=== PATIENT | female | born 1995 | race Caucasian/White ===

== ENCOUNTER 2020-01-18 00:33 | Emergency (ER) | payer OTHER ==
[2020-01-18] MEDS ORDERED: LEVALBUTEROL 1.25 MG/3 ML NEB ONE (01:11)
[2020-01-18] MEDS ORDERED: AZITHROMYCIN 250 MG TAB ONE (02:28)
--- NOTE | 2020-01-18 02:30 | ER ---
Nurse's Notes [facility] Name: Ashish Solano Age: 24 yrs Sex: Female : 1995 Arrival Date: 01/18/2020 Time: 00:36 Bed 20 Private MD: Diagnosis: Acute pharyngitis;Acute upper respiratory infection, unspecified Presentation: 01/17 00:47 Chief complaint: Patient states: i have cough and sore throat 2 weeks ago and i was mg2 tested for flu and strep and it was negative. today i have cough, chest pain and fever 100 F. Coronavirus screen: The patient has NOT traveled to a country currently being monitored by the [facility] within the last 14 days. Proceed with normal triage procedures. The patient has NOT had contact with any known and/or suspected case of coronavirus. Ebola Screen: No symptoms or risks identified at this time. Initial Sepsis Screen: Does the patient meet any 2 criteria? No. Patient's initial sepsis screen is negative. Does the patient have a suspected source of infection? No. Patient's initial sepsis screen is negative. Risk Assessment: Do you want to hurt yourself or someone else? Patient reports no desire to harm self or others. 00:47 Method Of Arrival: Ambulatory mg2 00:47 Acuity: JUDY 4 mg2 Triage Assessment: 02:00 General: Appears in no apparent distress. comfortable, Behavior is calm, cooperative. mg2 Respiratory: Onset: The symptoms/episode began/occurred today, the patient has mild shortness of breath. 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 - Social history:: Smoking status: Patient denies any tobacco usage or history of. Patient uses alcohol, occasionally. Patient/guardian denies using street drugs, IV drugs. Screenin:53 Abuse screen: Denies threats or abuse. Denies injuries from another. Nutritional mg2 screening: No deficits noted. Tuberculosis screening: No symptoms or risk factors identified. Fall Risk None identified. Assessment: 00:54 General: Appears in no apparent distress. comfortable, Behavior is calm, cooperative. mg2 Pain: Complains of pain in chest. Neuro: Level of Consciousness is awake, alert, obeys commands, Oriented to person, place, time, situation. Cardiovascular: Rhythm is regular. Respiratory: Reports shortness of breath cough that is Airway is patent Respiratory effort is even, unlabored, Respiratory pattern is regular, symmetrical, Breath sounds are clear. GI: No signs and/or symptoms were reported involving the gastrointestinal system. : No signs and/or symptoms were reported regarding the genitourinary system. EENT: Reports sore throat. Derm: Skin is intact, is healthy with good turgor, Skin is pink, warm \T\ dry. normal. Musculoskeletal: Circulation, motion, and sensation intact. Capillary refill < 3 seconds. Vital Signs: 00:47 BP 140 / 92; Pulse 93; Resp 18; Temp 98.5; Pulse Ox 98% on R/A; Weight 63.5 kg; Height mg2 5 ft. 7 in. (170.18 cm); 02:40 BP 135 / 78; Pulse 90; Resp 18; Temp 98(TE); Pulse Ox 100% on R/A; mg2 00:47 Body Mass Index 21.93 (63.50 kg, 170.18 cm) mg2 ED Course: 00:36 Patient arrived in ED. cl3 00:41 Jean Leon PA is PHCP. jmm 00:41 Randall Vyas MD is Attending Physician. jmm 00:46 Sorin Mccall, DANIELITO is Primary Nurse. mg2 00:50 Triage completed. mg2 00:51 Arm band placed on. mg2 01:04 No provider procedures requiring assistance completed. Flu and/or RSV swab sent to lab. mg2 Strep swab sent to lab. Patient did not have IV access during this emergency room visit. 01:05 Patient has correct armband on for positive identification. mg2 01:32 Chest Single View XRAY In Process Unspecified. EDMS Administered Medications: 01:09 Drug: Xopenex (3) 1.25 mg Route: Inhalation; mg2 02:09 Follow up: Response: No adverse reaction mg2 02:26 Drug: AZITHromycin 500 mg Route: PO; mg2 02:26 Follow up: Response: No adverse reaction mg2 Outcome: 02:29 Discharge ordered by . jmm 02:40 Discharged to home ambulatory, with family. mg2 02:40 Condition: stable 02:40 Discharge instructions given to patient, family, Instructed on discharge instructions, follow up and referral plans. medication usage, Demonstrated understanding of instructions, follow-up care, medications, Prescriptions given X 2. 02:42 Patient left the ED. mg2 Signatures: Dispatcher [employer] EDMS Jean Leon PA PA jmm Gardose, Michele, RN RN mg2 Enrrique Pennington cl3
--- NOTE | 2020-01-18 02:30 | EDPHYS ---
Physician Documentation [facility] Name: Ashish Solano Age: 24 yrs Sex: Female : 1995 Arrival Date: 01/18/2020 Time: 00:36 Bed 20 Private MD: ED Physician Randall Vyas HPI: 01/17 00:46 This 24 yrs old Female presents to ER via Ambulatory with complaints of jmm Shortness Of Breath, Chest Pain. 00:46 The patient has shortness of breath at rest. Onset: The symptoms/episode began/occurred jmm gradually, today. Duration: The symptoms are continuous. Associated signs and symptoms: Pertinent positives: non-productive cough, fever. This is a 24 year old female with a history of ulcerative colitis that presents to the ED with complaints of cough, congestion, sore throat beginning today. Patient had a similar episode 2 weeks ago with worsening symptoms beginning this evening. Patient no has chest pain with deep inspiration and cough at the sternum which radiates laterally. . 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 - Social history:: Smoking status: Patient denies any tobacco usage or history of. Patient uses alcohol, occasionally. Patient/guardian denies using street drugs, IV drugs. ROS: 00:46 Abdomen/GI: Negative for abdominal pain, nausea, vomiting, diarrhea, and constipation, jmm Back: Negative for injury and pain, Neuro: Negative for headache, weakness, numbness, tingling, and seizure. 00:46 Constitutional: Positive for malaise. 00:46 Cardiovascular: Positive for chest pain, with cough. 00:46 Respiratory: Positive for cough. 00:46 All other systems are negative. Exam: 00:46 Constitutional: This is a well developed, well nourished patient who is awake, alert, jmm and in no acute distress. Head/Face: atraumatic. Eyes: EOMI, no conjunctival erythema appreciated 00:46 Neck: Trachea midline, Supple Chest/axilla: Normal chest wall appearance and motion. 00:46 Abdomen/GI: Non distended, soft Back: Normal ROM Skin: General appearance color normal MS/ Extremity: Moves all extremities, no obvious deformities appreciated, no edema noted to the lower extremities Neuro: Awake and alert, normal gait Psych: Behavior is normal, Mood is normal, Patient is cooperative and pleasant 00:46 ENT: TM's: erythema, that is moderate, on the left, Posterior pharynx: erythema, that is moderate. 00:46 Cardiovascular: Rate: normal, Rhythm: regular. 00:46 Respiratory: the patient does not display signs of respiratory distress, Respirations: normal, Breath sounds: are clear throughout. Vital Signs: 00:47 BP 140 / 92; Pulse 93; Resp 18; Temp 98.5; Pulse Ox 98% on R/A; Weight 63.5 kg; Height mg2 5 ft. 7 in. (170.18 cm); 02:40 BP 135 / 78; Pulse 90; Resp 18; Temp 98(TE); Pulse Ox 100% on R/A; mg2 00:47 Body Mass Index 21.93 (63.50 kg, 170.18 cm) mg2 MDM: 00:46 Patient medically screened. [facility] 02:28 Data reviewed: vital signs, nurses notes. Counseling: I had a detailed discussion with [facility] the patient and/or guardian regarding: the historical points, exam findings, and any diagnostic results supporting the discharge/admit diagnosis, lab results, radiology results, the need for outpatient follow up, to return to the emergency department if symptoms worsen or persist or if there are any questions or concerns that arise at home. ED course: Patient is alert and non toxic in appearance in the ED. No signs of resp distress appreciated. Patient is advised to follow up with pcp and otherwise given strict return precautions. Patient understood and agrees with the plan of care. . 03 00:53 Order name: Flu; Complete Time: 02:15 [facility] 01/17 00:53 Order name: Strep; Complete Time: 02:15 [facility] 01/17 00:53 Order name: Chest Single View XRAY [facility] 01/17 02:16 Order name: Throat Culture EDMS Administered Medications: 01:09 Drug: Xopenex (3) 1.25 mg Route: Inhalation; mg2 02:09 Follow up: Response: No adverse reaction mg2 02:26 Drug: AZITHromycin 500 mg Route: PO; mg2 02:26 Follow up: Response: No adverse reaction mg2 Disposition: 07:33 Co-signature as Attending Physician, Randall Vyas MD I agree with the assessment and [facility] plan of care. Disposition: 01/18/20 02:29 Discharged to Home. Impression: Acute pharyngitis, Acute upper respiratory infection, unspecified. - Condition is Stable. - Discharge Instructions: Pharyngitis, Upper Respiratory Infection, Adult. - Prescriptions for Bromfed DM 2- 30-10 mg/5 mL Oral syrup - take 5 milliliter by ORAL route every 4 hours; 1 bottle. Zithromax Z- Davi 250 mg Oral Tablet - take 1 tablet by ORAL route as directed for 5 days Day 1 - take two (2) tablets one time. Day 2, 3, 4 , 5 take one (1) tablet once daily.; 6 tablet. - Medication Reconciliation Form, Thank You Letter, Antibiotic Education, Prescription Opioid Use form. - Follow up: Private Physician; When: 2 - 3 days; Reason: Recheck today's complaints, Continuance of care, Re-evaluation by your physician. Signatures: Dispatcher [employer] EDRandall Manning MD MD cha Mickail, Joel, PA PA Sorin Trinidad, RN RN mg2 Corrections: (The following items were deleted from the chart) 02:42 02:29 01/18/2020 02:29 Discharged to Home. Impression: Acute pharyngitis; Acute upper mg2 respiratory infection, unspecified. Condition is Stable. Forms are Medication Reconciliation Form, Thank You Letter, Antibiotic Education, Prescription Opioid Use. Follow up: Private Physician; When: 2 - 3 days; Reason: Recheck today's complaints, Continuance of care, Re-evaluation by your physician. kate
[2020-01-18 03:04] VITALS: BP 135/78; TEMP 98; O2SAT 100
--- NOTE | 2020-01-18 07:15 | RAD REPORT ---
EXAM DESCRIPTION: RAD - Chest Single View - 01/18/2020 1:31 am CLINICAL HISTORY: cough, shortness of breath, chest pain, sore throat TECHNIQUE: AP portable chest image was obtained 01/18/2020 1:31 am . FINDINGS: Lungs are clear. Heart and vasculature are normal. No measurable pleural effusion and no p neumothorax. No acute bony abnormality seen. No acute aortic findings suspected. IMPRESSION: No acute cardiopulmonary process.
== END 2020-01-18 02:42 | disposition home or self-care (01) ==
LOC: ER 00:33
DX: J06.9 Acute upper respiratory infection, unspecified (principal); J02.9 Acute pharyngitis, unspecified; Z88.0 Allergy status to penicillin
CPT/HCPCS: 71045; 87070; 87081; 87804; 99284